=== PATIENT | male | born 1995 | race African-American/Black ===

== ENCOUNTER 2017-04-09 17:00 | Emergency (ER) | payer SELFPAY ==
[~2017-04-09] VITALS: Ht 180.3 cm; Wt 172.7 kg
[2017-04-09 17:07] VITALS: BP 141/86; PULSE 75; RESP 17; O2SAT 96
[2017-04-09 17:11] VITALS: BP 141/86; PULSE 75; RESP 17; O2SAT 96
--- NOTE | 2017-04-09 18:26 | DRSVH ---
PROCEDURE: X-RAY RIGHT ANKLE, MINIMUM THREE VIEWS ([id number]) INDICATIONS: ankle injury TECHNIQUE: 3 views of the ankle were acquired. COMPARISON: None. FINDINGS: Bones: No fractures or dislocations. Ankle mortise is normally aligned. There is a sclerotic focus within the distal tibia measuring 13 mm. No priors are available for comparison. Soft tissues: No tibiotalar joint effusion. Achilles tendon appears normal. IMPRESSION: 1. No visualized acute fracture or dislocation. However, if clinical concern and/or pain persist, derek rt interval imaging followup in 7-10 days is recommended, as occult injury cannot be definitively exc luded. 2. 30 mm focus of sclerosis within the distal tibia. This could represent an enchondroma. No priors a re available for comparison. If pain is present within this region or other clinical concern, further evaluation with MRI is recommended. Otherwise, three-month interval followup is recommended to docum ent stability. Dictated by: Marlene Mora M.D. on 04/09/2017 at 18:22 Approved by: Marlene Mora M.D. on 04/09/2017 at 18:24
--- NOTE | 2017-04-09 18:32 | ED.REPORT ---
HPI-Extremity Problem Lower Date of Service Apr 09, 2017 ED Provider: Suresh Woods History of Present Illness: 21yo male reports slip down several stairs yesterday, injuring R foot and R ankle. No other injuries. It is painful in primarily his lateral R foot to bear weight. Nursing Notes Stated Complaint: RIGHT FOOT INJURY Chief Complaint: Multiple Trauma/Fall Nursing Notes Reviewed: Yes Allergies: Coded Allergies: No Known Allergies (Unverified , 04/09/17) Scheduled PRN Naproxen (Naprosyn) 500 Mg Tablet 500 MG PO BID PRN PRN For Pain General Time Seen by MD: 18:30 Chief Complaint Ankle injury right, Foot injury right Hx Obtained From: Patient Onset Occurred: Yesterday Symptom Duration: Since onset Caused by: Slipped Context: Occurred at: Home injury Location: : Ankle right: Foot right Severity: Current: Moderate Severity: Maximum: Moderate Associated with: Reports: Unable to bear weight, Denies: "Pop" felt or heard Pertinent Negative: Pt denies other symptoms Exacerbated by: Range of motion Relieved by: Rest Recent Healthcare: No recent doctor visit Similar Sx Previous: No Risk-Extremity Prob Lower Well's Criteria for DVT Well's DVT Score: 0 pts (low risk 5%) Past Medical History Past Medical History Reports: Asthma Reports: Obesity Smoking History Never Smoker Social History Alcohol Use: Denies alcohol use Drug Use: Denies drug use Ambulatory Status Wheelchair Review of Systems Constitutional: Denies: Chills, Fever Musculoskeletal: Reports: Extremity pain, Extremity swelling, Joint pain Respiratory: Denies: Shortness of breath Cardiovascular: Denies: Chest pain GI: Denies: Abdominal pain Physical Exam Initial Vital Signs Vital Signs (First) Date Time Temp Pulse Resp B/P Pulse Ox O2 Delivery O2 Flow Rate FiO2 04/09/17 17:07 37.2 75 17 141/86 96 Room Air Initial VS: Reviewed Right Leg / Calf: Negative: Swelling present..., Tenderness present... Right Ankle: Positive: ROM reduced, Swelling present... (Mild), Tender lateral malleolus, Negative: Anterior drawer test pos, Ecchymosis present, Erythema present, Neuro deficit present, Pulse post tib decreased Right Foot: Positive: ROM reduced, Swelling present... (Mild), Tender base 5th mtarsal, Negative: Ecchymosis present, Erythema present, Neuro deficit present, Tender calcaneous, Tender plantar fascia, Warmth present Joint above & below: affected area is NL. General/Constitutional: Awake, Alert, No acute distress, Not toxic appearing Appearance / Presentation: Positive: Obese, morbidly Respiratory / Chest: Breath sounds NL, Breath sounds = bilat, No respiratory distress Cardiovascular: Heart rate NL, Regular rhythm, Heart sounds NL Interpretation & Diagnostics X-Ray Interpretation Xray Interpretation: PROCEDURE: X-RAY RIGHT FOOT COMPLETE, MINIMUM THREE VIEWS ([id number]) INDICATIONS: pain lateral foot TECHNIQUE: 3 views of the foot were acquired. COMPARISON: None. FINDINGS: Bones: No fractures or dislocations. No suspicious bony lesions. Soft tissues: No tibiotalar joint effusion. Achilles tendon appears normal. IMPRESSION: No visualized acute fracture or dislocation. However, if clinical concern and/or pain persist, short interval imaging followup in 7-10 days is recommended, as occult injury cannot be definitively excluded. Dictated by: Marlene Mora M.D. on 04/09/2017 at 19:21 Approved by: Marlene Mora M.D. on 04/09/2017 at 19:22 Study Performed: PROCEDURE: X-RAY RIGHT ANKLE, MINIMUM THREE VIEWS ([id number]) INDICATIONS: ankle injury TECHNIQUE: 3 views of the ankle were acquired. COMPARISON: None. FINDINGS: Bones: No fractures or dislocations. Ankle mortise is normally aligned. There is a sclerotic focus within the distal tibia measuring 13 mm. No priors are available for comparison. Soft tissues: No tibiotalar joint effusion. Achilles tendon appears normal. IMPRESSION: 1. No visualized acute fracture or dislocation. However, if clinical concern and/or pain persist, short interval imaging followup in 7-10 days is recommended, as occult injury cannot be definitively excluded. 2. 30 mm focus of sclerosis within the distal tibia. This could represent an enchondroma. No priors are available for comparison. If pain is present within this region or other clinical concern, further evaluation with MRI is recommended. Otherwise, three-month interval followup is recommended to document stability. Dictated by: Marlene Mora M.D. on 04/09/2017 at 18:22 Approved by: Marlene Mora M.D. on 04/09/2017 at 18:24 Procedures Splint Post-Application Eval Extremity Condition: Cap refill < 2 sec, Distal sensation intact Re-Eval/Medical Decision Med Decision/Clinical Course Pt. sustained a R ankle/foot strain. He should do well with home symptomatic measures including rest, elevation, local heat, and Naprosyn. Discussed his R tibia finding of enchondroma. he is not having pain there. Encouraged repeat x-ray to confirm stability per radiology's recommendation. Differential Diagnosis: Positive: Sprain Diagnosis Appears: Evident Counseled Regarding: Diagnosis, Lab results, Need for follow-up, When/why to return to ED Discharge & Departure Impression: Primary Impression: Right ankle sprain Encounter type: initial encounter Involved ligament of ankle: unspecified ligament Qualified Code: S93.401A - Sprain of unspecified ligament of right ankle, initial encounter Additional Impressions: Right foot sprain Encounter type: initial encounter Qualified Code: S93.601A - Unspecified sprain of right foot, initial encounter Enchondroma of right tibia Disposition: Home Patient Instructions: Ankle Sprain (ED) Additional Instructions: Rest, elevation, local heat. Wear splint and use crutches for 5 days. Take Naprosyn as needed for pain. You need follow up on your x-ray in 3 months to recheck an area of sclerosis in your R tibia that has likely been present for some time. Return to ER if anything worsens. Referrals: [facility]vising Provider for APC: Shawn Junior MD, Christopher R PAC Apr 09, 2017 18:32
--- NOTE | 2017-04-09 19:24 | DRSVH ---
PROCEDURE: X-RAY RIGHT FOOT COMPLETE, MINIMUM THREE VIEWS ([id number]) INDICATIONS: pain lateral foot TECHNIQUE: 3 views of the foot were acquired. COMPARISON: None. FINDINGS: Bones: No fractures or dislocations. No suspicious bony lesions. Soft tissues: No tibiotalar joint effusion. Achilles tendon appears normal. IMPRESSION: No visualized acute fracture or dislocation. However, if clinical concern and/or pain pe rsist, short interval imaging followup in 7-10 days is recommended, as occult injury cannot be defini tively excluded. Dictated by: Marlene Mora M.D. on 04/09/2017 at 19:21 Approved by: Marlene Mora M.D. on 04/09/2017 at 19:22
[2017-04-09] MEDS ORDERED: NAPR500T PO (19:42)
== END 2017-04-09 20:20 | disposition home or self-care (01) ==
LOC: SED 17:00
DX: S93.401A Sprain of unspecified ligament of right ankle, initial encounter (principal); S93.601A Unspecified sprain of right foot, initial encounter; W10.9XXA Fall (on) (from) unspecified stairs and steps, initial encounter; Y93.89 Activity, other specified; Y92.009 Unspecified place in unspecified non-institutional (private) residence as the place of occurrence of the external cause; Y99.8 Other external cause status; D16.21 Benign neoplasm of long bones of right lower limb; J45.909 Unspecified asthma, uncomplicated

== ENCOUNTER 2017-06-08 01:41 | Emergency (ER) | payer OTHER ==
[~2017-06-08] VITALS: Ht 180.3 cm; Wt 154.6 kg
[~2017-06-08 01:41] MED LIST: NAPR500T PO
[2017-06-08 01:50] VITALS: BP 141/84; PULSE 60; RESP 16; O2SAT 99
--- NOTE | 2017-06-08 02:03 | ED.REPORT ---
HPI-Extremity Problem Lower Date of Service Jun 08, 2017 ED Provider: Suresh Simon MD Pt is an obese 21 year old male who presents to the ED complaining of right ankle pain. He denies any other symptoms. The pt reports that he thinks his right ankle might be dislocated. Pt presented to the ED on 04/09/17 after injuring his right foot and ankle after slipping down several stairs. He was discharged and diagnosed with right ankle sprain and right foot sprain. Nursing Notes Stated Complaint: ANKLE PAIN Chief Complaint: Extremity Trauma Nursing Notes Reviewed: Yes Allergies: Coded Allergies: No Known Allergies (Unverified , 06/08/17) Scheduled Famotidine (Pepcid) 20 Mg Tablet 20 MG PO BID Scheduled PRN Ibuprofen (Ibuprofen) 600 Mg Tablet 600 MG PO QID PRN PRN For Pain Naproxen (Naprosyn) 500 Mg Tablet 500 MG PO BID PRN PRN For Pain General Time Seen by MD: 02:03 Chief Complaint Ankle injury right Hx Obtained From: Patient Arrived By: Wheelchair Onset Occurred: More than a week ago... (2 months) Symptom Duration: Since onset Caused by: Accidental Location: : Ankle right Quality: Painful Severity: Current: Moderate Severity: Maximum: Moderate Recent Healthcare: No recent doctor visit, No recent hospitalization Similar Sx Previous: Yes Past Medical History Past Medical History Reports: Asthma Reports: Obesity Past Surgical History Denies Smoking History Never Smoker Social History Alcohol Use: Denies alcohol use Drug Use: Denies drug use Other Social History: Good social support Ambulatory Status Wheelchair Review of Systems + right ankle pain Constitutional: Denies: Fever Complete sys rev & neg: except as marked. Respiratory: Denies: Non-productive cough, Shortness of breath Physical Exam Initial Vital Signs Vital Signs (First) Date Time Temp Pulse Resp B/P Pulse Ox O2 Delivery O2 Flow Rate FiO2 06/08/17 01:50 36.5 60 16 141/84 99 Room Air Initial VS: Reviewed Head / Eyes: Atraumatic, Normocephalic Neck: Supple, Full range of motion Respiratory: Breath sounds normal, Clear to auscultation, No respiratory distress Cardiovascular: Regular rate & rhythm, Heart sounds normal, Intact distal pulses Abdomen / GI: Soft, Non-tender Upper Extremities: Vascular intact, Neuro intact Skin: Warm, Dry, No cyanosis Neurologic: Alert, Oriented, Nonfocal Psychiatric: Mood/affect normal, Behavior normal Lower Extremity / Pelvis / MS: Neurologic intact, Vascular intact Ankle / Foot: Neurologic intact, Vascular intact Tenderness at the insertion of Achilles's tendon with prominence at the nodule. General/Constitutional: Awake, Alert Re-Eval/Medical Decision Med Decision/Clinical Course 21-year-old with chronic ankle pain presents for evaluation because it continues to hurt. No severe injury or exacerbating noted. Tender over the insertion of the Achilles tendon onto the calcaneus with bony nodule palpable. X-ray without evidence of fracture dislocation. Degenerative changes and callus apparent from prior injury. Crutches and Aircast splint ordered but patient apparently departed prior to receiving these. Source of Hx: Old records Re-Evaluation/Progress : Time of Eval: 03:00 Re-Evaluation/Progress Note: Pt rechecked. Pt left without behing discharged. Counseled Regarding: Other (Left without being discharged. ) Discharge & Departure Impression: Primary Impression: Ankle pain Disposition: Home (Pt left without discharge instructions) Discharge Condition All VS Reviewed: Yes Condition: Stable Patient Instructions: Ankle Sprain (ED) Additional Instructions: We see no evidence of fracture or acute injury. There is some spur formation secondary to your prior injury. Follow-up with local physician. May follow up with [facility] if you need local care. Your orthopedic doctor can also follow-up regarding your ankle. If you do not have a local orthopedist, call the office of Dr. Foster for follow-up. Use crutches as long as tender to bear weight. Use Aircast splint over the ankle, always with a tall sock or Curt wrap underneath, then a shoe over the splint. Ibuprofen or Naprosyn as needed for pain. Pepcid twice daily as long as you are on ibuprofen or Naprosyn. Referrals: [facility] (PCP) Jorge Foster MD [facility] Att[facility] Portions of this note were transcribed by Ashlee Knott. I, Dr. Simon personally performed the history, physical exam and medical decision-making; I reviewed and confirmed the accuracy of the information in the transcribed note. Signed by: Anisha Castillo, 06/07/17. copies to: Jorge Foster MD; [facility] Suresh Simon MD Jun 08, 2017 02:03 Ashlee Urban Jun 08, 2017 03:30
[2017-06-08] MEDS ORDERED: IBUP-1827 PO (03:13)
[2017-06-08] MEDS ORDERED: FAMO20T PO (03:14)
--- NOTE | 2017-06-08 08:35 | DRSVH ---
PROCEDURE: X-RAY RIGHT FOOT COMPLETE, MINIMUM THREE VIEWS ([id number]) INDICATIONS: pain, chronic post injury "dislocated" TECHNIQUE: 3 views of the foot were acquired. COMPARISON: 04/09/2017 FINDINGS: Bones: No fractures or dislocations. No suspicious bony lesions. Soft tissues: No tibiotalar joint effusion. Achilles tendon appears normal. IMPRESSION: No evidence of fracture or dislocation. In view of persistent pain, MRI imaging may be co nsidered. Dictated by: Harvey Mott M.D. on 06/08/2017 at 8:32 Approved by: Harvey Mott M.D. on 06/08/2017 at 8:33
--- NOTE | 2017-06-08 08:47 | DRSVH ---
PROCEDURE: X-RAY RIGHT ANKLE, MINIMUM THREE VIEWS ([id number]) INDICATIONS: pain, chronic post injury "dislocated" TECHNIQUE: 3 views of the ankle were acquired. COMPARISON: 04/09/2017 FINDINGS: Bones: No fractures or dislocations. Ankle mortise is normally aligned. Focal area of sclerosis in the distal tibial diaphysis is unchanged. Soft tissues: No tibiotalar joint effusion. Achilles tendon appears normal. IMPRESSION: 1. No evidence of acute or subacute ankle trauma. 2. Benign-appearing sclerosis in the distal tibia is unchanged. Dictated by: Harvey Mott M.D. on 06/08/2017 at 8:43 Approved by: Harvey Mott M.D. on 06/08/2017 at 8:45
== END 2017-06-08 03:27 | disposition home or self-care (01) ==
LOC: SED 01:41
DX: M25.571 Pain in right ankle and joints of right foot (principal); W18.40XA Slipping, tripping and stumbling without falling, unspecified, initial encounter; Y93.89 Activity, other specified; Y99.8 Other external cause status; Y92.89 Other specified places as the place of occurrence of the external cause; J45.909 Unspecified asthma, uncomplicated